=== PATIENT | male | born 1985 | race Caucasian/White ===

== ENCOUNTER 2016-09-17 19:07 | Emergency (ER) | payer BC, OTHER ==
[2016-09-17 20:04] VITALS: BP 128/75
[2016-09-17] MEDS ORDERED: predniSONE TAB* 20 MG PO ONE (20:26)
[2016-09-17] MEDS ORDERED: Cephalexin CAP* 500 MG PO ONE (20:26)
--- NOTE | 2016-09-17 20:29 | UC ---
Throat Pain/Nasal Wale HPI - HPI Summary HPI Summary: 31yo male with sore throat x 4 days trouble swallowing no f/v has had a headache no myalgias can take keflex exposed to strep recently at work - History of Current Complaint Chief Complaint: UCGeneralIllness Stated Complaint: SORE THROAT Time Seen by Provider: 09/17/16 20:19 Hx Obtained From: Patient Onset/Duration: Sudden Onset, Lasting Days Severity: Moderate Pain Intensity: 4 Pain Scale Used: 0-10 Numeric - Epiglottits Risk Factors Epiglottis Risk Factors: Negative - Allergies/Home Medications Allergies/Adverse Reactions: Allergies Allergy/AdvReac Type Severity Reaction Status Date / Time Penicillins Allergy Severe Hives Verified 09/17/16 20:04 PMH/Surg Hx/FS Hx/Imm Hx Previously Healthy: Yes - Surgical History Surgical History: Yes Surgery Procedure, Year, and Place: EYE SX CATARACT REMOVED AT 6WKS OF AGE. LENS IMPLANTS AT AGE 11 - Family History Known Family History: Positive: Hypertension Negative: Cardiac Disease, Diabetes - Social History Alcohol Use: Rare Substance Use Type: None Smoking Status (MU): Never Smoked Tobacco Review of Systems Constitutional: Negative Skin: Negative Eyes: Negative ENT: Sore Throat Respiratory: Negative Cardiovascular: Negative Gastrointestinal: Negative Genitourinary: Negative Motor: Negative Neurovascular: Negative Musculoskeletal: Negative Neurological: Headache Psychological: Negative All Other Systems Reviewed And Are Negative: Yes Physical Exam Triage Information Reviewed: Yes Appearance: Well-Appearing, No Pain Distress, Well-Nourished Vital Signs: Initial Vital Signs Temp 97.2 F 09/17/16 19:58 Pulse 75 09/17/16 19:58 Resp 18 09/17/16 19:58 BP 128/75 09/17/16 19:58 Pulse Ox 98 09/17/16 19:58 Eye Exam: Normal Eyes: Positive: Conjunctiva Clear ENT: Positive: Hearing grossly normal, Pharyngeal erythema, Tonsillar swelling, Other: - midline uvula. Negative: Nasal congestion, Nasal drainage, Trismus, Muffled/hoarse voice Dental: Negative: Gross Decay/Caries @, Dental Fracture @, Abscess @ Neck: Positive: Supple, Enlarged Nodes @ - anterior cervica' Respiratory: Positive: Lungs clear, Normal breath sounds, No respiratory distress Cardiovascular: Positive: RRR, No Murmur Musculoskeletal: Positive: ROM Intact, No Edema Neurological: Positive: Alert Psychological Exam: Normal Skin Exam: Normal Throat Pain/Nasal Course/Dx - Differential Dx/Diagnosis Provider Diagnoses: acute tonsillitis Discharge - Discharge Plan Condition: Stable Disposition: HOME Prescriptions: Cephalexin CAP* [Keflex 500 CAP*] 500 mg PO BID #18 cap Prednisone 60 mg PO DAILY #6 tab Patient Education Materials: Tonsillitis (ED) Referrals: Billy De Luna MD [Primary Care Provider] - If Needed Additional Instructions: rest fluids recheck in 3-4 days if not better
== END 2016-09-17 20:45 | disposition home or self-care (01) ==
LOC: UCCORT 19:07
DX: J03.90 Acute tonsillitis, unspecified (principal); Z88.0 Allergy status to penicillin
CPT/HCPCS: 99212; A9270-GY; G0463; J7512

== ENCOUNTER 2017-08-26 14:31 | Emergency (ER) | payer BC, OTHER ==
[2017-08-26 15:53] VITALS: BP 117/80
--- NOTE | 2017-08-26 16:26 | UC ---
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 Pt with sore throat, painful swallowing. 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 - treated with Tamiflu 3 weeks ago Pt's medications reviewed this visit - History of Current Complaint Chief Complaint: UCGeneralIllness Stated Complaint: FEVER/HEADACHE/ACHY/SORE THROAT Time Seen by Provider: 08/26/17 16:14 Hx Obtained From: Patient Onset/Duration: Gradual Onset Severity: Moderate Pain Intensity: 7 Pain Scale Used: 0-10 Numeric Associated Signs & Symptoms: Positive: Fever - Allergies/Home Medications Allergies/Adverse Reactions: Allergies Allergy/AdvReac Type Severity Reaction Status Date / Time Penicillins Allergy Intermediate Hives Verified 08/26/17 15:53 PMH/Surg Hx/FS Hx/Imm Hx Previously Healthy: Yes - Surgical History Surgical History: Yes Surgery Procedure, Year, and Place: EYE SX CATARACT REMOVED AT 6WKS OF AGE. LENS IMPLANTS AT AGE 11 - Family History Known Family History: Positive: Hypertension, Other - daughter with strep Negative: Cardiac Disease, Diabetes - Social History Occupation: Student Lives: With Family Alcohol Use: Rare Substance Use Type: None Smoking Status (MU): Never Smoked Tobacco Review of Systems Constitutional: Fever ENT: Sore Throat Respiratory: Negative Cardiovascular: Negative All Other Systems Reviewed And Are Negative: Yes Physical Exam Triage Information Reviewed: Yes Appearance: Well-Appearing, No Pain Distress, Well-Nourished Vital Signs: Initial Vital Signs Temp 99.5 F 08/26/17 15:48 Pulse 128 08/26/17 15:48 Resp 17 08/26/17 15:48 BP 117/80 08/26/17 15:48 Pulse Ox 99 08/26/17 15:48 Vital Signs Reviewed: Yes Eye Exam: Normal Eyes: Positive: Conjunctiva Clear ENT: Positive: Pharyngeal erythema, TMs normal, Tonsillar swelling, Tonsillar exudate, Uvula midline. Negative: Muffled voice, Sinus tenderness Dental Exam: Normal Neck exam: Normal Neck: Positive: Supple, Nontender, No Lymphadenopathy Respiratory Exam: Normal Respiratory: Positive: Chest non-tender, Lungs clear, Normal breath sounds, No respiratory distress, No accessory muscle use Cardiovascular Exam: Normal Cardiovascular: Positive: RRR, No Murmur Abdominal Exam: Normal Abdomen Description: Positive: Nontender, No Organomegaly, Soft Bowel Sounds: Positive: Present Musculoskeletal Exam: Normal Musculoskeletal: Positive: Strength Intact Neurological Exam: Normal Neurological: Positive: Alert Psychological Exam: Normal Psychological: Positive: Normal Response To Family Skin Exam: Normal Throat Pain/Nasal Course/Dx - Course Course Of Treatment: pt with sore throat fevers x 24 hours. pt with tonsillar exudate, erythema. + strep. abx. pred. school note. hydrate. secretion precaution. motrin/apap. return precautions - Differential Dx/Diagnosis Provider Diagnoses: sterp pharyngitis Discharge - Discharge Plan Condition: Stable Disposition: HOME Prescriptions: Azithromycin 500 mg PO DAILY #7 tablet predniSONE TAB* [Deltasone TAB*] 50 mg PO DAILY #5 tab Patient Education Materials: Strep Throat (ED) Forms: *School Release Referrals: Anna Ortiz SEARCH ADVERTISING STRATEGIST [Primary Care Provider] - Additional Instructions: - Stay well hydrated. Drink plenty of non-alcoholic, non-caffinated beverages. - Alternate ibuprofen (Advil, Motrin) 600mg and Tylenol 1000mg every 3 hours for pain or fever. Take with food. Do NOT take for more than 4-5 days. -cold foods (popsicle, jello, apple sauce) may be soothing to your throat - okay to gargle and spit with warm salt water, 2-3 times a day - Take antibiotics and prednisone as prescribed until gone - These infections are spread by secretions - do NOT share eating or drinking utensils - clean items you share with other people such as cell phones, computer mouse, TV remote, computer tablets, etc. After you have taken antibiotics for 2 days, change your toothbrush and your pillowcase. - get plenty of restful sleep - humidify the air in the room where you sleep - boil water, run a hot steam shower, vaporizer, cups of water by heat register - okay to take over the counter decongestant and cough medication - contact your doctor, return here, or go to the emergency department with questions or concerns
== END 2017-08-26 16:57 | disposition home or self-care (01) ==
LOC: UCCORT 14:31
DX: J02.0 Streptococcal pharyngitis (principal)
CPT/HCPCS: 87502; 87651; 99212; G0463

== ENCOUNTER 2018-11-06 18:11 | Emergency (ER) | payer BC, OTHER ==
[2018-11-06 18:47] VITALS: BP 126/83
--- NOTE | 2018-11-06 19:12 | UC ---
Eye Complaint HPI - History of Current Complaint Chief Complaint: UCEar Stated Complaint: BILAT EAR COMP Time Seen by Provider: 11/06/18 19:05 Pain Intensity: 3 - Allergies/Home Medications Allergies/Adverse Reactions: Allergies Allergy/AdvReac Type Severity Reaction Status Date / Time Penicillins Allergy Intermediate Hives Verified 08/26/17 15:53 Home Medications: Home Medications Pseudoephedrine TAB* [Sudafed TAB*] 30 mg PO QAM PRN 11/06/18 [History Confirmed 11/06/18] PMH/Surg Hx/FS Hx/Imm Hx - Surgical History Surgical History: Yes Surgery Procedure, Year, and Place: b/l EYE SX CATARACTS REMOVED AT 6WKS OF AGE. LENS IMPLANTS AT AGE 11 - Family History Known Family History: Positive: Hypertension, Other - daughter with strep Negative: Cardiac Disease, Diabetes - Social History Alcohol Use: Rare Substance Use Type: None Smoking Status (MU): Never Smoked Tobacco Physical Exam Vital Signs: Initial Vital Signs Temp 98.2 F 11/06/18 18:41 Pulse 86 11/06/18 18:41 Resp 18 11/06/18 18:41 BP 126/83 11/06/18 18:41 Pulse Ox 99 11/06/18 18:41 Eye Complaint Course/Dx - Differential Dx/Diagnosis Provider Diagnosis: Right otitis media with effusion, Left serous otitis media Discharge - Sign-Out/Discharge Documenting (check all that apply): Patient Departure All imaging exams completed and their final reports reviewed: No Studies - Discharge Plan Condition: Stable Disposition: HOME Prescriptions: Amoxicillin PO (*) [Amoxicillin 875 MG (*)] 875 mg PO BID #20 tab Patient Education Materials: Ear Infection (ED), Serous Otitis Media (ED) Referrals: Anna Ortiz NP [Primary Care Provider] - - Billing Disposition and Condition Condition: STABLE Disposition: Home
--- NOTE | 2018-11-06 19:14 | UC ---
Ear Complaint HPI - HPI Summary HPI Summary: 33 yo male with URI symptoms x 8 days no with decreased hearing x 1-2 days right >> left otalgia no otorrhea no CP or SOB - History of Current Complaint Chief Complaint: UCEar Stated Complaint: BILAT EAR COMP Time Seen by Provider: 11/06/18 19:05 Hx Obtained From: Patient Onset/Duration: Gradual Onset Severity Initially: Mild Severity Currently: Moderate Pain Intensity: 3 Pain Scale Used: 0-10 Numeric Aggravating Factors: Nothing Alleviating Factors: Nothing Associated Signs/Symptoms: Positive: Hearing Loss, URI Symptoms - Allergies/Home Medications Allergies/Adverse Reactions: Allergies Allergy/AdvReac Type Severity Reaction Status Date / Time Penicillins Allergy Intermediate Hives Verified 08/26/17 15:53 Home Medications: Home Medications Pseudoephedrine TAB* [Sudafed TAB*] 30 mg PO QAM PRN 11/06/18 [History Confirmed 11/06/18] PMH/Surg Hx/FS Hx/Imm Hx Previously Healthy: Yes - Surgical History Surgical History: Yes Surgery Procedure, Year, and Place: b/l EYE SX CATARACTS REMOVED AT 6WKS OF AGE. LENS IMPLANTS AT AGE 11 - Family History Known Family History: Positive: Hypertension, Other - daughter with strep, dad with CVA Negative: Cardiac Disease, Diabetes - Social History Alcohol Use: Rare Substance Use Type: None Smoking Status (MU): Never Smoked Tobacco Review of Systems All Other Systems Reviewed And Are Negative: Yes Constitutional: Positive: Fatigue Skin: Positive: Negative Eyes: Positive: Negative ENT: Positive: Ear Ache, Nasal Discharge, Sinus Congestion Respiratory: Positive: Negative, Cough Cardiovascular: Positive: Negative Gastrointestinal: Positive: Negative Genitourinary: Positive: Negative Motor: Positive: Negative Neurovascular: Positive: Negative Musculoskeletal: Positive: Negative Neurological: Positive: Negative Psychological: Positive: Negative Physical Exam Triage Information Reviewed: Yes Appearance: Well-Appearing, No Pain Distress, Well-Nourished Vital Signs: Initial Vital Signs Temp 98.2 F 11/06/18 18:41 Pulse 86 11/06/18 18:41 Resp 18 11/06/18 18:41 BP 126/83 11/06/18 18:41 Pulse Ox 99 11/06/18 18:41 Vital Signs Reviewed: Yes Eyes: Positive: Conjunctiva Clear ENT: Positive: Nasal congestion, TM bulging - bilat, TM red - right. Negative: Hearing grossly normal, Nasal drainage Dental Exam: Normal Neck: Positive: Supple, Nontender, No Lymphadenopathy Respiratory: Positive: Lungs clear, Normal breath sounds, No respiratory distress Cardiovascular: Positive: RRR, No Murmur Musculoskeletal: Positive: ROM Intact, No Edema Neurological: Positive: Alert Psychological Exam: Normal Skin Exam: Normal Ear Complaint Course/Dx - Differential Dx/Diagnosis Provider Diagnosis: Right otitis media with effusion, Left serous otitis media Discharge - Sign-Out/Discharge Documenting (check all that apply): Patient Departure All imaging exams completed and their final reports reviewed: No Studies - Discharge Plan Condition: Stable Disposition: HOME Prescriptions: Amoxicillin PO (*) [Amoxicillin 875 MG (*)] 875 mg PO BID #20 tab Fluticasone NASAL SPRAY 50MCG* [Flonase NASAL SPRAY 50MCG*] 2 spray BOTH NARES BID #1 btl Patient Education Materials: Ear Infection (ED), Serous Otitis Media (ED) Referrals: Anna Ortiz NP [Primary Care Provider] - 2 Weeks (if hearing not back to normal) - Billing Disposition and Condition Condition: STABLE Disposition: Home
== END 2018-11-06 19:19 | disposition home or self-care (01) ==
LOC: UCCORT 18:11
DX: H65.91 Unspecified nonsuppurative otitis media, right ear (principal); H65.92 Unspecified nonsuppurative otitis media, left ear; Z88.0 Allergy status to penicillin
CPT/HCPCS: 99212; G0463

== ENCOUNTER 2019-03-01 13:54 | Emergency (ER) | payer BC, MEDICAID ==
--- NOTE | 2019-03-01 14:56 | ED ---
Psychiatric Complaint - HPI Summary HPI Summary: 33 year old M presenting to [facility] with a chief complaint of possible anxiety and depression for the last 4 months. Symptoms aggravated by nothing. Symptoms alleviated by nothing. Patient reports feeling overwhelmed and is concerned of anxiety or depression. Patient reports emotional dysregulation and crying randomly at even things that are sometimes nominal. Patient reports that he cannot keep it together and thus cannot get work done. Patient reports that his schedule is so full and he cannot cut things out to put in self-care without hurting other people. 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 Patient reports that he came in before and was prescribed a medication, Effexor, for a situational depression as he was going through divorce. Patient reports he feels as though he has nothing left to give to care stating that it is not apathy but he feels so drained. Patient reports he has been finding himself doing more self-destructive behaviors which is very unlike his normal character. Patient reports he usually does not drink alcohol but last night he did due to symptoms. Patient denies thoughts of hurting himself or other people and hearing or seeing things that other people cannot see or hear. Patient reports sleep apnea and shx of the eyes. Patient denies drug or tobacco use. Patient reports allergies to penicillin. - History Of Current Complaint Chief Complaint: EDPsychosocial Time Seen by Provider: 03/01/19 14:23 Hx Obtained From: Patient Onset/Duration: Lasting Days - 4 months, Still Present Aggravating Factor(s): Nothing Alleviating Factor(s): Nothing Associated Signs And Symptoms: Positive: Sleep Disturbance - sleep apnea. Negative: Hallucinating Has Suicidal: Denies: Thoughts Has Homicidal: Denies: Thoughts - Allergies/Home Medications Allergies/Adverse Reactions: Allergies Allergy/AdvReac Type Severity Reaction Status Date / Time Penicillins Allergy Intermediate Hives Verified 03/01/19 13:59 PMH/Surg Hx/FS Hx/Imm Hx Sensory History: Reports: Hx Cataracts, Hx Contacts or Glasses Opthamlomology History: Reports: Hx Cataracts, Hx Contacts or Glasses Psychiatric History: Reports: Hx Depression - situational depression, Other Psychiatric Issues/Disorders - sleep apnea - Surgical History Surgery Procedure, Year, and Place: b/l EYE SX CATARACTS REMOVED AT 6WKS OF AGE. LENS IMPLANTS AT AGE 11 Infectious Disease History: No Infectious Disease History: Denies: Hx Clostridium Difficile, Hx Hepatitis, Hx Human Immunodeficiency Virus (HIV), Hx of Known/Suspected MRSA, Hx Shingles, Hx Tuberculosis, Hx Known/ Suspected VRE, Hx Known/Suspected VRSA, History Other Infectious Disease, Traveled Outside the [place] in Last 30 Days - Family History Known Family History: Positive: Hypertension, Other - daughter with strep, dad with CVA Negative: Cardiac Disease, Diabetes - Social History Alcohol Use: Rare Hx Substance Use: No Substance Use Type: Reports: None Hx Tobacco Use: No Smoking Status (MU): Never Smoked Tobacco Review of Systems Negative: Fever Positive: Other - overwhelmed, drained, emotional dysregulation; denies thoughts of hurting himself or others, hearing or seeing things that others cannot see or hear All Other Systems Reviewed And Are Negative: Yes Physical Exam - Summary Physical Exam Summary: Constitutional: Well-developed, Well-nourished, Alert. (-) Distressed Skin: Warm, Dry HENT: Normocephalic; Atraumatic Eyes: Conjunctiva normal Neck: Musculoskeletal ROM normal neck. (-) JVD, (-) Stridor, (-) Tracheal deviation Cardio: Rhythm regular, rate normal, Heart sounds normal; Intact distal pulses; The pedal pulses are 2+ and symmetric. Radial pulses are 2+ and symmetric. (-) Murmur Pulmonary/Chest wall: Effort normal. (-) Respiratory distress, (-) Wheezes, (-) Rales Abd: Soft, (-) tenderness, (-) Distension, (-) Guarding, (-) Rebound Musculoskeletal: (-) Edema Lymph: (-) Cervical adenopathy Neuro: Alert, Oriented x3 Psych: depressed affect, tearful Triage Information Reviewed: Yes Vital Signs On Initial Exam: Initial Vitals Temp Pulse Resp BP Pulse Ox 98.4 F 96 16 135/99 96 03/01/19 13:56 03/01/19 13:56 03/01/19 13:56 03/01/19 13:56 03/01/19 13:56 Vital Signs Reviewed: Yes Diagnostics - Vital Signs Vital Signs Temp Pulse Resp BP Pulse Ox 03/01/19 13:56 98.4 F 96 16 135/99 96 - Laboratory Lab Statement: Any lab studies that have been ordered have been reviewed, and results considered in the medical decision making process. Re-Evaluation - Re-Evaluation First Eval Re-Evaluation Time: 15:35 Comment: Physician discusses discharge with patient. Course/Dx - Course Course Of Treatment: Patient is here with worsening depressed mood. Patient has no red flag symptoms of psychiatric illness. Patient is overworked in his life with 4 full-time jobs and 5 children. Patient has been on Effexor in the past with good relief when he was . Patient was prescribed a low dose of Effexor with instructions follow up with his primary care doctor as soon as possible to get a refill. Patient is given resources by the social contact worker. - Differential Dx/Clinical Impression Provider Diagnosis: Depressed mood Discharge ED - Sign-Out/Discharge Documenting (check all that apply): Patient Departure - discharge Patient Received Moderate/Deep Sedation with Procedure: No - Discharge Plan Condition: Stable Disposition: HOME Prescriptions: Venlafaxine EXT RELEASE CAP* [Effexor Xr CAP*] 37.5 mg PO DAILY 30 Days #30 cap.sr Patient Education Materials: Depression (ED) Referrals: Anna Ortiz NP [Primary Care Provider] - As Soon As Possible Additional Instructions: Follow up with resources given by social contact worker. Start your medication. Follow up with primary care provider for refill. Return to ED for any worsening depression or suicidal thoughts. - Billing Disposition and Condition Condition: STABLE Disposition: Home - Attestation Statements Document Initiated by Hope: Yes Documenting Scribe: Mckayla Carlos Provider For Whom Hope is Documenting (Include Credential): Dr. Aydin Long MD Scribe Attestation: Mckayla Walters scribed for Dr. Aydin Long MD on 03/01/19 at 1622. Scribe Documentation Reviewed: Yes Provider Attestation: The documentation as recorded by the Mckayla sky accurately reflects the service I personally performed and the decisions made by me, Dr. Aydin Long MD Status of Scribadelfo Document: Viewed
[2019-03-01 15:42] VITALS: BP 129/87
== END 2019-03-01 15:42 | disposition home or self-care (01) ==
LOC: ED 13:54
DX: F32.9 Major depressive disorder, single episode, unspecified (principal); Z79.899 Other long term (current) drug therapy; Z88.0 Allergy status to penicillin
CPT/HCPCS: 99282

== ENCOUNTER 2019-09-06 12:10 | Emergency (ER) | payer BC, MEDICAID ==
[2019-09-06 12:26] VITALS: BP 134/94
--- NOTE | 2019-09-06 13:05 | UC ---
Respiratory Complaint HPI - HPI Summary HPI Summary: Pt was at a large conference in [place] 2 weeks ago and landed on . 3 days ago started w/ sore throat, cough, loss of voice, assoc.w / some sob. denies exposure to COVID but did travel. - History of Current Complaint Chief Complaint: UCGeneralIllness Stated Complaint: SORE THROAT, COUGH Time Seen by Provider: 09/06/19 12:47 Hx Obtained From: Patient Pain Intensity: 5 Pain Scale Used: 0-10 Numeric Character: Cough: Nonproductive Aggravating Factors: Nothing Alleviating Factors: Nothing - Allergies/Home Medications Allergies/Adverse Reactions: Allergies Allergy/AdvReac Type Severity Reaction Status Date / Time Penicillins Allergy Intermediate Hives Verified 09/06/19 12:27 Home Medications: Home Medications NK [No Home Medications Reported] 09/06/19 [History Confirmed 09/06/19] PMH/Surg Hx/FS Hx/Imm Hx - Additional Past Medical History Additional PMH: no chronic illness Previously Healthy: Yes - Surgical History Surgical History: Yes Surgery Procedure, Year, and Place: b/l EYE SX CATARACTS REMOVED AT 6WKS OF AGE. LENS IMPLANTS AT AGE 11 - Family History Known Family History: Positive: Hypertension, Other - daughter with strep, dad with CVA Negative: Cardiac Disease, Diabetes - Social History Alcohol Use: Rare Substance Use Type: None Smoking Status (MU): Never Smoked Tobacco Review of Systems All Other Systems Reviewed And Are Negative: Yes Constitutional: Negative: Fever Skin: Negative: Rash Eyes: Negative: Drainage ENT: Positive: Other - hoarseness. Negative: Sore Throat, Ear Ache, Nasal Discharge, Sinus Congestion Respiratory: Positive: Shortness Of Breath, Cough. Negative: Other Cardiovascular: Negative: Chest Pain, Other - denies pleuritic cp Gastrointestinal: Negative: Vomiting, Diarrhea Motor: Negative: Weakness Musculoskeletal: Negative: Myalgia Neurological/Mental Status: Negative: Weakness Physical Exam Triage Information Reviewed: Yes Appearance: Well-Appearing Vital Signs: Initial Vital Signs Temp 98.7 F 09/06/19 12:22 Pulse 89 09/06/19 12:22 Resp 16 09/06/19 12:22 BP 134/94 09/06/19 12:22 Pulse Ox 97 09/06/19 12:22 Vital Signs Reviewed: Yes Eyes: Positive: Conjunctiva Clear ENT: Positive: Pharynx normal, TMs normal, Uvula midline Neck: Positive: Supple, Nontender, No Lymphadenopathy Respiratory Exam: Normal Cardiovascular Exam: Normal Neurological: Positive: Alert Skin: Negative: Rashes Respiratory Course/Dx - Course Course Of Treatment: URi symptoms in a healthy male w/ no comorbidities after returning from [place] and developing symptoms shortly after. On exam he had unremarkable findings and did show low risk for any COVID complications but high risk for possible COVID infxn. Vitals are good. We spoke to the local health dept. as well as the state level and it was decided he qualified for testing. After pt's 2hr wait and knowing he had to quarantine regardless of symptoms and being tested he has decided to self quarantine until his symptoms resolve or two wks have passed. This was relayed to both local and state departments. I explained all the scenarios to the pt. including importance of quarantining himself in home w/ his own bedroom and bathroom. he verbalized understanding and has decided to decline testing but will self quarantine. of note his is at 38 wks at home - Differential Dx/Diagnosis Differential Diagnosis/HQI/PQRI: Bronchitis, Other Provider Diagnosis: URI (upper respiratory infection) Discharge ED - Sign-Out/Discharge Documenting (check all that apply): Patient Departure All imaging exams completed and their final reports reviewed: No Studies - Discharge Plan Condition: Good Disposition: HOME Patient Education Materials: Viral Syndrome (ED) Forms: *Work Release Referrals: Anna Ortiz NP [Primary Care Provider] - Additional Instructions: If you develop worsening respiratory symptoms please go to emergency room. - Billing Disposition and Condition Condition: GOOD Disposition: Home
[2019-09-06 13:39] LABS: Influenza A Molecular Negative (Negative); Influenza B Molecular Negative (Negative)
== END 2019-09-06 14:43 | disposition home or self-care (01) ==
LOC: UCCORT 12:10
DX: J06.9 Acute upper respiratory infection, unspecified (principal); Z88.0 Allergy status to penicillin
CPT/HCPCS: 87651; 99211; G0463